=== PATIENT | female | born 1995 | race Caucasian/White ===

== ENCOUNTER 2017-09-01 21:02 | Emergency (ER) | payer BC, OTHER ==
[2017-09-01 21:37] LABS: Urine Appearance Cloudy; Urine Blood 1+ (Negative); Urine Color Yellow; Urine Ketones Negative (Negative); Urine Protein 1+(30 mg/dL) (Negative); Urine Specific Gravity 1.019 (1.010-1.030); Urine Urobilinogen Negative (Negative)
[2017-09-01] MEDS ORDERED: Ciprofloxacin TAB* 250 MG PO ONE (22:30)
--- NOTE | 2017-09-01 22:47 | ED ---
GI/ HPI - HPI Summary HPI Summary: Complains of increased urinary urge 5 hours, epigastric pain 1 hour with mild nausea. History of same symptoms with prior UTI 1 year ago. Denies fever, v/d , vaginal sx. - History of Current Complaint Chief Complaint: EDUrogenitalProblems Time Seen by Provider: 09/01/17 21:54 Stated Complaint: POSSIBLE UTI Hx Obtained From: Patient Hx Last Menstrual Period: 1 MONTH AGO Pain Intensity: 6 - Allergy/Home Medications Allergies/Adverse Reactions: Allergies Allergy/AdvReac Type Severity Reaction Status Date / Time No Known Allergies Allergy Verified 09/01/17 23:55 Home Medications: Home Medications Etonogestrel [Nexplanon] 68 mg IMPLANT SEE INSTRUCTIONS 09/01/17 [History Confirmed 09/01/17] PMH/Surg Hx/FS Hx/Imm Hx Respiratory History: Reports: Other Respiratory Problems/Disorders - H/O PNEUMONIA FALL 2013 Infectious Disease History: No Infectious Disease History: Denies: Traveled Outside the [place] in Last 30 Days - Social History Alcohol Use: Occasionally Alcohol Amount: Vodka occ Substance Use Type: Reports: None Smoking Status (MU): Never Smoked Tobacco Review of Systems - ROS Summary Review of Systems Summary: No CVA tenderness bilaterally. Mild tenderness to palpation epigastrically. Constitutional: Negative Eyes: Negative ENT: Negative Cardiovascular: Negative Respiratory: Negative Positive: Abdominal Pain, Nausea Positive: urgency Musculoskeletal: Negative Positive: Rash Neurological: Negative Psychological: Normal All Other Systems Reviewed And Are Negative: Yes Physical Exam - Summary Physical Exam Summary: Complains of increased urinary urge 5 hours, epigastric pain 1 hour with mild nausea. History of same symptoms with prior UTI 1 year ago. Denies fever, v/d , vaginal sx. Triage Information Reviewed: Yes Vital Signs On Initial Exam: Initial Vitals Temp Pulse Resp BP Pulse Ox 97.7 F 61 16 128/81 100 09/01/17 21:05 09/01/17 21:05 09/01/17 21:05 09/01/17 21:05 09/01/17 21:05 Vital Signs Reviewed: Yes Appearance: Positive: Well-Appearing Skin: Positive: Warm Head/Face: Positive: Normal Head/Face Inspection Eyes: Positive: Normal Neck: Positive: Supple Respiratory/Lung Sounds: Positive: Clear to Auscultation Cardiovascular: Positive: Normal Musculoskeletal: Positive: Normal Neurological: Positive: Normal Psychiatric: Positive: Normal AVPU Assessment: Alert - [place] Coma Scale Best Eye Response: 4 - Spontaneous Best Motor Response: 6 - Obeys Commands Best Verbal Response: 5 - Oriented Coma Scale Total: 15 Diagnostics - Vital Signs Vital Signs Temp Pulse Resp BP Pulse Ox 09/01/17 21:05 97.7 F 61 16 128/81 100 - Laboratory Lab Results: Lab Results 09/01/17 Range/Units 21:17 Urine Color Yellow Urine Appearance Cloudy Urine pH 7.0 (5-9) Ur Specific [place] 1.019 (1.010-1.030) Urine Protein 1+(30 mg/dl) A (Negative) Urine Ketones Negative (Negative) Urine Blood 1+ A (Negative) Urine Nitrate Negative (Negative) Urine Bilirubin Negative (Negative) Urine Urobilinogen Negative (Negative) Ur Leukocyte Esterase 3+ A (Negative) Urine WBC (Auto) 3+(>20/hpf) A (Absent) Urine RBC (Auto) 3+(>10/hpf) A (Absent) Ur Squamous Epith Cells Present A (Absent) Urine Bacteria Absent (Absent) Urine Glucose Negative (Negative) Lab Statement: Any lab studies that have been ordered have been reviewed, and results considered in the medical decision making process. GIGU Course/Dx - Course Course Of Treatment: Complains of increased urinary urge 5 hours, epigastric pain 1 hour with mild nausea. History of same symptoms with prior UTI 1 year ago. Denies fever, v/d, vaginal sx. Complains of increased urinary urge 5 hours, epigastric pain 1 hour with mild nausea. History of same symptoms with prior UTI 1 year ago. Denies fever, v/d, vaginal sx. Positive for UTI. Rx for Cipro - Diagnoses Provider Diagnoses: UTI (urinary tract infection) Discharge - Sign-Out/Discharge Documenting (check all that apply): Discharge/Admit/Transfer - Discharge Plan Condition: Stable Disposition: HOME Prescriptions: Ciprofloxacin HCl [Cipro] 500 mg PO BID 10 Days #20 tablet Patient Education Materials: Urinary Tract Infection in Women (ED) Referrals: No Primary Care Phys,NOPCP [Primary Care Provider] - [facility] [Outside] Additional Instructions: Take antibiotics as directed. Follow-up with primary care. Return to the ED for any new or worsening symptoms - Billing Disposition and Condition Condition: STABLE Disposition: HOME
[2017-09-01 22:56] VITALS: BP 121/77
[2017-09-01] MEDS ORDERED: Acetaminophen TAB* 325 MG PO ONE (23:04)
[2017-09-01] MEDS ORDERED: Ondansetron ODT TAB* 4 MG PO ONE (23:04)
--- NOTE | 2017-09-04 10:54 | ED ---
Progress - Progress Note Progress Note: Patient's final urine culture reveals greater than 100,000 Staphylococcus saprophyticus. Patient was discharged on a fluoroquinolone to which organism is inherently sensitive. No change in treatment at this time. Course/Dx - Course Course Of Treatment: Complains of increased urinary urge 5 hours, epigastric pain 1 hour with mild nausea. History of same symptoms with prior UTI 1 year ago. Denies fever, v/d, vaginal sx. Complains of increased urinary urge 5 hours, epigastric pain 1 hour with mild nausea. History of same symptoms with prior UTI 1 year ago. Denies fever, v/d, vaginal sx. Positive for UTI. Rx for Cipro - Diagnoses Provider Diagnoses: UTI (urinary tract infection) Discharge - Sign-Out/Discharge Documenting (check all that apply): Post-Discharge Follow Up - Discharge Plan Condition: Stable Disposition: HOME Prescriptions: Ciprofloxacin HCl [Cipro] 500 mg PO BID 10 Days #20 tablet Patient Education Materials: Urinary Tract Infection in Women (ED) Referrals: [facility] [Outside] No Primary Care Phys,NOPCP [Primary Care Provider] - Additional Instructions: Take antibiotics as directed. Follow-up with primary care. Return to the ED for any new or worsening symptoms - Billing Disposition and Condition Condition: STABLE Disposition: Home
== END 2017-09-01 22:55 | disposition home or self-care (01) ==
LOC: ED 21:02
DX: N39.0 Urinary tract infection, site not specified (principal); R10.13 Epigastric pain; R10.9 Unspecified abdominal pain; R11.0 Nausea; R21 Rash and other nonspecific skin eruption
CPT/HCPCS: 81003; 81015; 87077; 87086; 99282; A9270-GY

== ENCOUNTER 2017-09-01 23:34 | Emergency (ER) | payer BC ==
[2017-09-02 00:03] LABS: ABS Basophils 0.1 10^3/ul (0-0.2); ABS Eosinophils 0.1 10^3/ul (0-0.6); ABS Lymphocytes 2.5 10^3/ul (1.0-4.8); ABS Monocytes 0.6 10^3/ul (0-0.8); ABS Neutrophils 6.7 10^3/ul (1.5-7.7); ABS Nucleated RBC 0 10^3/ul; Eosinophil % 1.3 % (0-6); Hematocrit 38 % (35-47); Hemoglobin 12.8 g/dl (12.0-16.0); Lymphocyte % 24.8 % (25-47); Mean Corpuscular HGB Conc 33 g/dl (31-36); Mean Corpuscular Hemoglobin 31 pg (27-31); Mean Corpuscular Volume 94 fL (80-97); Mean Platelet Volume 8.8 um3 (7.4-10.4); Nucleated Red Blood Cells % 0; Platelet Count 230 10^3/ul (150-450); Red Blood Count 4.07 10^6/ul (4.0-5.4); Red Cell Distribution Width 13 % (10.5-15)
[2017-09-02] MEDS ORDERED: Ondansetron ODT TAB* 4 MG PO ONE (00:04)
[2017-09-02] MEDS ORDERED: Acetaminophen TAB* 325 MG PO ONE (00:04)
[2017-09-02 00:21] LABS: EGFR Non-African American 104.6 (>60)
[2017-09-02] MEDS ORDERED: Pantoprazole TAB (NF) 40 MG TAB PO ONE (00:58)
[2017-09-02] MEDS ORDERED: Ibuprofen TAB* 600 MG PO ONE (00:59)
--- NOTE | 2017-09-02 01:04 | ED ---
Abdominal Pain/Female - HPI Summary HPI Summary: Patient returns for evaluation of epigastric pain and nausea. Seen here earlier today by this provider for urinary symptoms. Positive for UTI. Patient was accidentally discharged prior to complete evaluation of epigastric pain. Conversation was had with the patient stating she could go home and try to see if the UTI antibiotics improved all her symptoms, or reregister for further evaluation of epigastric pain. Patient opted to reregister and be evaluated. Denies change in symptoms. - History of Current Complaint Chief Complaint: EDAbdPain Stated Complaint: ABD PAIN Time Seen by Provider: 09/01/17 23:39 Hx Obtained From: Patient Hx Last Menstrual Period: 1 MONTH AGO ?: No Pain Intensity: 7 Allergies/Adverse Reactions: Allergies Allergy/AdvReac Type Severity Reaction Status Date / Time No Known Allergies Allergy Verified 09/01/17 23:55 PMH/Surg Hx/FS Hx/Imm Hx Respiratory History: Reports: Other Respiratory Problems/Disorders - H/O PNEUMONIA FALL 2013 Infectious Disease History: No Infectious Disease History: Denies: Traveled Outside the [place] in Last 30 Days - Social History Alcohol Use: Occasionally Alcohol Amount: Vodka occ Substance Use Type: Reports: None Smoking Status (MU): Never Smoked Tobacco Review of Systems Constitutional: Negative Eyes: Negative ENT: Negative Cardiovascular: Negative Respiratory: Negative Positive: Abdominal Pain, Nausea Positive: dysuria Musculoskeletal: Negative Skin: Negative Neurological: Negative Psychological: Normal All Other Systems Reviewed And Are Negative: Yes Physical Exam - Summary Physical Exam Summary: Mildly tender to palpation epigastrically. Negative Poe's. No tenderness to palpation in bilateral lower quadrants suprapubically, left upper quadrant. Triage Information Reviewed: Yes Vital Signs On Initial Exam: Initial Vitals Temp Pulse Resp BP Pulse Ox 98.1 F 56 16 107/78 100 09/01/17 23:51 09/01/17 23:51 09/01/17 23:51 09/01/17 23:51 09/01/17 23:51 Vital Signs Reviewed: Yes Appearance: Positive: Well-Appearing Skin: Positive: Warm Head/Face: Positive: Normal Head/Face Inspection Eyes: Positive: Normal Neck: Positive: Supple Respiratory/Lung Sounds: Positive: Clear to Auscultation Cardiovascular: Positive: Normal Musculoskeletal: Positive: Normal Neurological: Positive: Normal Psychiatric: Positive: Normal AVPU Assessment: Alert - [place] Coma Scale Best Eye Response: 4 - Spontaneous Best Motor Response: 6 - Obeys Commands Best Verbal Response: 5 - Oriented Coma Scale Total: 15 Diagnostics - Vital Signs Vital Signs Temp Pulse Resp BP Pulse Ox 09/01/17 23:51 98.1 F 56 16 107/78 100 - Laboratory Lab Results: Lab Results 09/01/17 09/01/17 09/01/17 Range/Units 23:56 23:57 23:57 WBC 10.0 (3.5-10.8) 10^3/ul RBC 4.07 (4.0-5.4) 10^6/ul Hgb 12.8 (12.0-16.0) g/dl Hct 38 (35-47) % MCV 94 (80-97) fL MCH 31 (27-31) pg MCHC 33 (31-36) g/dl RDW 13 (10.5-15) % Plt Count 230 (150-450) 10^3/ul MPV 8.8 (7.4-10.4) um3 Neut % (Auto) 66.7 (38-83) % Lymph % (Auto) 24.8 L (25-47) % [place] % (Auto) 6.1 (0-7) % Eos % (Auto) 1.3 (0-6) % Baso % (Auto) 1.1 (0-2) % Absolute Neuts (auto) 6.7 (1.5-7.7) 10^3/ul Absolute Lymphs (auto) 2.5 (1.0-4.8) 10^3/ul Absolute Monos (auto) 0.6 (0-0.8) 10^3/ul Absolute Eos (auto) 0.1 (0-0.6) 10^3/ul Absolute Basos (auto) 0.1 (0-0.2) 10^3/ul Absolute Nucleated RBC 0 10^3/ul Nucleated RBC % 0 Sodium 139 (139-145) mmol/L Potassium 4.0 (3.5-5.0) mmol/L Chloride 105 (101-111) mmol/L Carbon Dioxide 28 (22-32) mmol/L Anion Gap 6 (2-11) mmol/L BUN 11 (6-24) mg/dL Creatinine 0.70 (0.51-0.95) mg/dL Est GFR ( Amer) 134.6 (>60) Est GFR (Non-Af Amer) 104.6 (>60) BUN/Creatinine Ratio 15.7 (8-20) Glucose 85 (70-100) mg/dL Lactic Acid 0.9 (0.5-2.0) mmol/L Calcium 9.4 (8.6-10.3) mg/dL Total Bilirubin 0.30 (0.2-1.0) mg/dL AST 15 (13-39) U/L ALT 13 (7-52) U/L Alkaline Phosphatase 67 (34-104) U/L C-Reactive Protein 3.89 (< 5.00) mg/L Total Protein 7.0 (6.4-8.9) g/dL Albumin 4.2 (3.2-5.2) g/dL Globulin 2.8 (2-4) g/dL Albumin/Globulin Ratio 1.5 (1-3) Lipase 18 (11.0-82.0) U/L Beta HCG, Quant < 0.60 mIU/mL Result Diagrams: 09/01/17 23:56 09/01/17 23:57 Lab Statement: Any lab studies that have been ordered have been reviewed, and results considered in the medical decision making process. Abdominal Pain Fem Course/Dx - Course Course Of Treatment: Patient returns for evaluation of epigastric pain and nausea. Seen here earlier today by this provider for urinary symptoms. Positive for UTI. Patient was accidentally discharged prior to complete evaluation of epigastric pain. Conversation was had with the patient stating she could go home and try to see if the UTI antibiotics improved all her symptoms, or reregister for further evaluation of epigastric pain. Patient opted to reregister and be evaluated. Denies change in symptoms. Mildly tender to palpation epigastrically. Negative Poe's. No tenderness to palpation in bilateral lower quadrants suprapubically, left upper quadrant. Labs unremarkable, including liver enzymes, alkaline phosphatase, lipase, white count, CRP. Afebrile, vital signs within normal limits. No history of pancreatic disease or gallbladder symptoms. Positive history of intermittent stomach discomfort from eating. Nausea improved with Zofran. Abdominal pain improved some with Tylenol and ibuprofen. Patient agrees to see if pain improves with antibiotics for UTI. Will return if symptoms worsen. - Diagnoses Provider Diagnoses: Epigastric pain Discharge - Sign-Out/Discharge Documenting (check all that apply): Discharge/Admit/Transfer - Discharge Plan Condition: Stable Disposition: HOME Patient Education Materials: Epigastric Pain (ED) Referrals: No Primary Care Phys,NOPCP [Primary Care Provider] - [facility] [Outside] Additional Instructions: If Symptoms do not improve with antibiotics for UTI follow-up with primary care. Return to the ED for any new or worsening symptoms - Billing Disposition and Condition Condition: STABLE Disposition: HOME
[2017-09-02] MEDS ORDERED: Omeprazole CAP* 20 MG PO ONE (02:00)
[2017-09-02 02:05] VITALS: BP 107/72
== END 2017-09-02 02:05 | disposition home or self-care (01) ==
LOC: ED 23:34
DX: R10.13 Epigastric pain (principal); R11.0 Nausea; N39.0 Urinary tract infection, site not specified
CPT/HCPCS: 36415; 80053; 83605; 83690; 84702; 85025; 86140; 99283; A9270-GY